=== PATIENT | male | born 1995 | race Caucasian/White ===

== ENCOUNTER 2018-08-25 16:03 | Emergency (ER) | payer OTHER ==
[2018-08-25] MEDS ORDERED: ISOVUE-370 76% 100ML VIAL (Q9967) As Ordered ONE (16:22)
--- NOTE | 2018-08-25 16:36 | REP ---
CT Head without contrast HISTORY: Trauma COMPARISON: None There is no intraparenchymal hemorrhage, acute infarct, mass or midline shift. The ventricular system is normal in appearance. There is no extra cerebral collection. There is no fracture. The visualized sinuses are clear. IMPRESSION: There is no intracranial lesion. Electronically Signed by Trino Naik MD 08/25/2018 04:27 P
--- NOTE | 2018-08-25 16:40 | REP ---
CT cervical spine without contrast HISTORY: Trauma COMPARISON: None There is no acute fracture or subluxation. There is no disc bulge or herniation. The spinal canal and neural foramina are patent. The intervertebral discs and vertebral bodies are normal in height. A 9 mm left pharyngocele is present. IMPRESSION: There is no acute fracture or subluxation. Electronically Signed by Trino Naik MD 08/25/2018 04:31 P
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
--- NOTE | 2018-08-25 17:36 | REP ---
Clinical: Trauma . Comparison: None . Technique: PA and lateral. Findings: The mediastinum and cardiac silhouette are normal. The lung mejia are clear and without acute consolidation, effusion, or pneumothorax. The skeletal structures are intact and normal. Impression: 1. No acute cardiopulmonary process. Electronically Signed by Marcos Umaña MD 08/25/2018 05:27 P
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
--- NOTE | 2018-08-25 17:38 | REP ---
Clinical: Trauma . Technique: AP, lateral, bilateral oblique, and coned-down views. Findings: Alignment and lordosis is maintained. The vertebral bodies including transverse process and spinous processes are intact and there is no evidence for acute fracture / compression injury or subluxation. Mild disc space narrowing and L5-S1 noted. Impression: No acute fracture / compression injury or subluxation. Mild disc space narrowing at L5-S1. Electronically Signed by Marcos Umaña MD 08/25/2018 05:29 P
[2018-08-25 17:54] VITALS: BP 142/70
== END 2018-08-25 17:56 | disposition home or self-care (01) ==
LOC: EDBD 16:03 → M ED 16:03
DX: S16.1XXA Strain of muscle, fascia and tendon at neck level, initial encounter (principal); S29.012A Strain of muscle and tendon of back wall of thorax, initial encounter; S39.012A Strain of muscle, fascia and tendon of lower back, initial encounter; S20.211A Contusion of right front wall of thorax, initial encounter; V49.40XA Driver injured in collision with unspecified motor vehicles in traffic accident, initial encounter; Y92.410 Unspecified street and highway as the place of occurrence of the external cause
CPT/HCPCS: 70450; 71046; 72072; 72110; 72125; 74177; 99284; Q9967